=== PATIENT | male | born 1960 | race Caucasian/White ===

== ENCOUNTER 2023-06-17 10:43 | Emergency (ER) | payer OTHER, SELFPAY ==
[2023-06-17] VITALS (13 sets, daily range): BP systolic 124–154; BP diastolic 70–93; PULSE 74–97; RESP 17–30; TEMP 36.6–36.8; O2SAT 94–97; BMI 33.0
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
[2023-06-17] MEDS: TET,DIPH,PERTUSS(ACELL),VAC/PF 0.5 ML SYRINGE IM (11:45)
[2023-06-17] MEDS: LIDOCAINE 2% W/EPI INJ 20 ML INJ (11:45)
[2023-06-17] MEDS: BACITRACIN OINT 0.9 GM PCKT 1 APPLIC TOP (11:47)
== END 2023-06-17 12:45 | disposition home or self-care (01) ==
PROVIDERS: Emergency Provider Emergency Medicine; PCP Family Medicine
DX: S51.012A Laceration without foreign body of left elbow, initial encounter (principal); M25.562 Pain in left knee; S00.81XA Abrasion of other part of head, initial encounter; S30.811A Abrasion of abdominal wall, initial encounter; S70.212A Abrasion, left hip, initial encounter; V29.99XA Rider (driver) (passenger) of other motorcycle injured in unspecified traffic accident, initial encounter; Z23 Encounter for immunization
CPT/HCPCS: 12005; 90471; 99284; 99285; 99291; 99292; 90715